=== PATIENT | female | born 1985 | race Caucasian/White ===

== ENCOUNTER 2018-01-21 19:34 | Emergency (ER) | payer OTHER ==
[~2018-01-21] VITALS: Ht 162.6 cm; Wt 58.8 kg
[2018-01-21] MEDS ORDERED: PERIDEX473 ML MM (20:37)
[2018-01-21] MEDS ORDERED: CLEOCIN300 MG PO (20:37)
[2018-01-21 20:59] VITALS: BP 136/85
== END 2018-01-21 21:00 | disposition home or self-care (01) ==
LOC: EME 19:34
DX: K04.7 Periapical abscess without sinus (principal); F17.200 Nicotine dependence, unspecified, uncomplicated; Z88.0 Allergy status to penicillin
CPT/HCPCS: 99281; 99283